=== PATIENT | female | born 1980 | race Caucasian/White ===

== ENCOUNTER 2017-08-30 06:07 | Day surgery (SDC) | payer BC ==
[2017-08-29 14:09] VITALS: BMI 27.4
[~2017-08-30 06:07] MED LIST: Cyclopentolate 1% Opth Drop 2 ML BOT FS SCH; Cyclopentolate 1% Opth Drop 2 ML BOT ONE; EPINEPHrine 0.3 MG in Ophthalmic Irrigation Solution 500 ML FS SCH; Phenylephrine 2.5% Ophth Soln 5 ML BOT FS SCH; Phenylephrine 2.5% Ophth Soln 5 ML BOT ONE
[2017-08-30] MEDS ORDERED: Fentanyl 100 MCG/2 ML VIAL ONE (06:18)
[2017-08-30] MEDS ORDERED: Midazolam HCl 2 mg/2 ml Vial ONE ×2 (06:18→06:58)
[2017-08-30] MEDS ORDERED: Lidocaine 2% 10 ML INJ ONE (06:18)
[2017-08-30] MEDS ORDERED: PROPOFOL 20 ML ONE (06:18)
--- NOTE | 2017-08-30 07:51 | OP ---
DATE OF PROCEDURE: 08/30/2017 PREOPERATIVE DIAGNOSIS: Vitreous membranes, left eye. POSTOPERATIVE DIAGNOSIS: Vitreous membranes, left eye. PROCEDURE PERFORMED: Pars plana vitrectomy and membrane peel, left eye. SURGEON: Dr. Julian Crawford. ANESTHESIA: Local with monitored anesthesia care. PROCEDURE IN DETAIL: The patient was identified in the preoperative holding area. Appropriate infor med consent for the planned surgical procedure on the left eye had been obtained. The patient was tr ansported to the operative suite. Appropriate cardiopulmonary monitoring was established. Local ane sthesia obtained using a retrobulbar modified Van Lint lid block using 50/50 mixture of 4% lidocaine and 0.75% bupivacaine. The patient was prepped and draped in the usual sterile manner for ophthalmic surgery on the left eye. Lid speculum was placed in the left eye. The 27-gauge trocar was placed i n conjunctiva and sclera supratemporally, inferotemporally, and supranasally. Infusion line was plac ed inferotemporally. Light pipe and vitreous cutter inserted into the eye and core vitrectomy was pe rformed. Vitreous membranes were peeled from the retinal surface. Indirect ophthalmoscopy was used to examine the retina 360 degrees. No holes, breaks or tears were identified. Trocars were removed and eye was noted to retain pressure well. Retrobulbar Kenalog and subconjunctival Ancef were placed . Atropine and antibiotic ointment were placed, and the eye was patched and shielded. The patient w as taken to the postoperative recovery unit in good condition having suffered no immediate preoperati ve indications. The patient was instructed to keep patch and shield on, avoid lifting and bending, a nd follow up in the morning with Dr. Crawford.
[2017-08-30] MEDS ORDERED: Lidocaine 1% PF 5 ML VIAL ONE (14:54)
[2017-08-30] MEDS ORDERED: PROPOFOL 200 MG/20 ML VIAL ONE (14:54)
== END 2017-08-30 08:24 | disposition home or self-care (01) ==
LOC: SDC 06:07
PROVIDERS: ATTEND Ophthalmology Retina Specialist
PROC: 08T53ZZ Resection of Left Vitreous, Percutaneous Approach (ICD-10-PCS; principal; 2017-08-30)
PROC: 08NF3ZZ Release Left Retina, Percutaneous Approach (ICD-10-PCS; principal; 2017-08-30)
DX: H43.312 Vitreous membranes and strands, left eye (principal); Z79.899 Other long term (current) drug therapy
CPT/HCPCS: J0171; J2001; J2250; J2704; J3010

== ENCOUNTER 2024-01-10 06:09 | Day surgery (SDC) | payer BC ==
[2024-01-09 15:37] VITALS: BMI 28.3
[~2024-01-10 06:09] MED LIST changes: -Cyclopentolate 1% Opth Drop 2 ML BOT FS SCH; -Cyclopentolate 1% Opth Drop 2 ML BOT ONE; -EPINEPHrine 0.3 MG in Ophthalmic Irrigation Solution 500 ML FS SCH; +EPINEPHrine 0.3 MG in Ophthalmic Irrigation Solution 500 ML IRR SCH; -Phenylephrine 2.5% Ophth Soln 5 ML BOT FS SCH; -Phenylephrine 2.5% Ophth Soln 5 ML BOT ONE
[2024-01-10] MEDS ORDERED: PHENYLephrine 2.5% Ophth Soln 15 ml Bottle ONE (06:22)
[2024-01-10] MEDS ORDERED: Cyclopentolate 1% Opth Drop 2 ML BOT ONE (06:22)
[2024-01-10] MEDS ORDERED: Midazolam HCl 2 mg/2 ml Vial ONE (06:50)
[2024-01-10] MEDS ORDERED: fentaNYL PF 100 MCG/2 ML SYRINGE ONE (06:56)
[2024-01-10] MEDS ORDERED: PROPOFOL 20 ML ONE (06:57)
[2024-01-10] MEDS ORDERED: fentaNYL 50 mcg/mL 1 mL Vial ONE ×2 (07:13→07:23)
[2024-01-10] MEDS ORDERED: Triamcinolone 40 MG/ML VIAL ONE (07:15)
[2024-01-10] MEDS ORDERED: Bupivacaine 0.75% 10 ML VIAL ONE (07:15)
[2024-01-10] MEDS ORDERED: Lidocaine 4% PF 5 ML AMP ONE (07:15)
[2024-01-10] MEDS ORDERED: CEFAZOLIN 1 GM VIAL ONE (07:15)
[2024-01-10] MEDS ORDERED: Lidocaine 1% PF 5 ML VIAL ONE (07:15)
[2024-01-10] MEDS ORDERED: Maxitrol 0.1% Opth Oint 3.5 GM TUBE ONE (07:15)
[2024-01-10] MEDS ORDERED: Dexamethasone 4 mg/ml Vial ONE (07:17)
== END 2024-01-10 08:22 | disposition home or self-care (01) ==
LOC: SDC 06:09
PROVIDERS: ATTEND Ophthalmology Retina Specialist
PROC: 08T43ZZ Resection of Right Vitreous, Percutaneous Approach (ICD-10-PCS; principal; 2024-01-10)
DX: H43.311 Vitreous membranes and strands, right eye (principal)
CPT/HCPCS: J0171; J0690; J1100; J2250; J2704; J3010; J3301; J3490